=== PATIENT | female | born 1970 | race Caucasian/White ===

== ENCOUNTER 2025-03-01 17:50 | Inpatient (IN) | payer OTHER, SELFPAY ==
[2025-03-01 14:09] VITALS: BP 149/73
[2025-03-01 14:13] VITALS: BP 149/73
[2025-03-01 14:15] VITALS: BMI 22.9
--- NOTE | 2025-03-01 14:21 | ED.MUSCINJ ---
HPI-Injury
General
Chief Complaint: Musculo-Skeletal Complaint
Time Seen by Provider: 03/01/25 14:13
History of Present Illness-Injury
Initial Injury comments:
Patient is a 54-year-old woman presenting to the emergency department with a fall. Patient states that she was standing on a chair and fell landing on her right hip. She did not hit her head or lose consciousness. She is not on a blood thinner.
She is complaining of diffuse pain to her entire right leg. It hurts at the pain knee and ankle. Per medics she was given 100 mcg of fentanyl. It did improve her pain. No numbness tingling. No headache. No trauma elsewhere.
Past History
Past History
ED Past Medical History: Fibromyalgia (Takes Flexeril which helps her pain from fibromyalgia and spinal stenosis) and Other (Spinal stenosis)
ED Past Surgical History: , Tonsilectomy and Other (Patient has a history of hemorrhoid surgery)
Social History
Tobacco: Non-smoker
Alcohol: None
Drug: Marijuana (Medical)
Personal:
Living: with family
Employment: Not employed
Family History
Family History: Other
Phy Exam
Physical Exam
Physical Exam:
GENERAL: no acute distress
HEENT: atraumatic, extraocular muscles intact, no signs of entrapment, dentition intact, no other obvious trauma
NECK: no midline tenderness, normal range of motion, NEXUS criteria negative, no other obvious trauma
BACK: no midline tenderness, no other obvious trauma
CHEST: no tenderness, no flail segment, no subcutaneous emphysema, no other obvious trauma
LUNGS: clear to auscultation bilaterally
CARDIOVASCULAR: regular rate and rhythm
ABDOMEN: soft, non-tender, no masses, no other obvious trauma
PELVIS: stable, no obvious injury
EXTREMITIES: Right lower extremity with pain diffusely from the hip to the ankle, normal cap refill, 2+ DP pulse, normal sensation, no obvious deformity, moving all extremities, distal pulses intact, no other obvious trauma
NEUROLOGIC: awake, alert x 3, no focal deficits
Injury Course
Orders/Labs/Results
Orders:
Orders
03/01/25 14:19
CR Ankle - Right Min 3 Views * Urgent
Comment:
Reason For Exam: pain, fall
CR Hip - RT w/wo Pel 2-3 Vw* Urgent
Comment:
Reason For Exam: hip pain
Include a pelvis x-ray?: Yes
CR Knee- Right 4 Or More View* Urgent
Comment:
Reason For Exam: knee pain
03/01/25 14:20
HYDROmorphone [Dilaudid] 0.25 mg IV NOW STA
03/01/25 Dinner
Regular
At Your Request: Full Participation
Does patient need a safe tray?: No
03/01/25 15:46
CT Pelvis W/o Iv Contrast Urgent
Comment:
Reason For Exam: hip fx, assess displacement
HYDROmorphone [Dilaudid] 0.5 mg IV NOW STA
03/01/25 15:47
HYDROmorphone [Dilaudid] 0.25 mg IV NOW STA
03/01/25 16:37
Basic Metabolic Panel Urgent
Complete Blood Count/With Diff Urgent
03/01/25 17:03
EKG [Electrocardiogram (*1)] Routine
Reason for Study: PreOp
EKG- Treatment ONCE
03/01/25 17:04
Admit/Transfer Patient As Directed
Co-Sign Provider:
Level of Care: Inpatient admission
Assign to:: Medical/Surgical
Physician / Group: Rafael Desai
Diagnosis: Right hip fracture
Reason for Hospitalization: Right hip fracture
Expected length of stay greater than two midnights?: Yes
ELOS- Estimated Length of Stay in days: 3
I certify the patient meets the requirements for IP care: Yes
03/01/25 17:05
Code Status As Directed
Resuscitation Status: Full Code
PRN Pain Medication Management As Directed
May give lesser potent ordered pain med per pt: Yes
preference::
Protocol:: Medication orders for pain may be administered in a
manner that supports deferring to patient preference
when the pt is:
- Requesting an ordered lesser potent pain medication.
Least to most potent pain medications are defined
as: acetaminophen < NSAID < tramadol < opioids
(morphine, oxycodone, hydromorphone).
- Requesting a lesser dose of the same medication IF
ORDERED.
- Requesting a less intrusive route of administration
if both routes are prescribed by the provider (PO <
IV).
03/01/25 17:35
Type+Screen Routine
03/01/25 18:21
ABO2 Urgent
[employer] Wristband Number:
Associate notified that ABO2 has been ordered: [id number]
Date: 03/01/25
Time: 17:46
Fashion Merchandiser ID: [id number]
03/01/25 19:17
HYDROmorphone [Dilaudid] 0.25 mg IV Q1HPRN PRN
03/01/25 19:50
Magnesium Hydroxide [Milk of Magnesia] 30 ml PO DAILYPRN PRN
Oxycodone [Roxicodone] 10 mg PO Q4HPRN PRN
Oxycodone [Roxicodone] 5 mg PO Q4HPRN PRN
Tamsulosin [Flomax] 0.4 mg PO DAILYPRN PRN
03/01/25 19:50
ORTHOPEDIC CONSULT Routine
Consulting Provider: Bubba Hurst
Was physician already notified: Yes
Reason for consult: hip fracture
Activity As Directed
Activity Level: Bedrest
Bladder Scan As Directed
Follow Bladder Retention/Intermittent Cath Algorithm?: Yes
PRN if no void in __ hours: 6
Comment: if not voiding 6 hrs upon arrival to floor, bladder scan & follow algorithm
Intake/ Output As Directed
Frequency: Per unit guidelines
Pneumatic Compression Sleeves As Directed
Type: Knee high
Straight Cath As Directed
Frequency: Per Retention Algorithm
Additional Instructions: straight cath as needed per acute urinary retention algorithm for 24 hrs
Additional Instructions: for bladder scan greater than 400 mL
Vital Signs As Directed
Frequency: Per unit guidelines
DX Deep Vein Thrombosis Video Routine
03/01/25 20:00
Acetaminophen [Tylenol] 650 mg PO Q4HWA
Docusate Sodium [Colace] 100 mg PO BID
Sennosides [Senokot] 17.2 mg PO BID
03/02/25 Breakfast
NPO
Allow oral meds: Yes
Allow clear liquids: 4hrs prior to procedure
Comment: may have unrestricted clear liquid up to 4 hrs prior to scheduled procedure
Abnormal Lab Results
03/01/25
16:37
WBC 14.3 H 10^3/uL
(4.8-10.8)
RBC 4.13 L 10^6/uL
(4.20-5.40)
MPV 11.3 H fL
(7.4-10.4)
Abs Immat Gran (auto) 0.1 H 10^3/uL
(0-0.05)
Absolute Neuts (auto) 12.7 H 10^3/uL
(1.4-6.5)
Absolute Lymphs (auto) 0.9 L 10^3/uL
(1.2-3.4)
Neutrophils % 88.3 H %
(42.2-75.2)
Lymphocytes % 6.5 L %
(20.5-51.1)
Creatinine 0.5 L mg/dL
(0.6-1.0)
Glucose 116 H mg/dl
(70-99)
03/01/25 16:37
03/01/25 16:37
MDM/Problems Addressed
Differential Diagnosis Includes:
Patient is a 54-year-old woman presenting to the emergency department with right lower extremity pain after a fall. Vitals are unremarkable exam does show diffuse tenderness from the hip to the ankle. There is no obvious deformity. Could be
fracture. Less likely to be dislocation. Will obtain x-rays and pain control.
*Critical Care Note
Total Time (30-74mins, 75-104mins- exclusive of procedures): Not Applicable
Update Note
Update Note:
X-ray per my interpretation with right-sided hip fracture. No obvious fracture on the ankle or hip per my interpretation. On reevaluation patient states that the pain is still not controlled. Will give additional Dilaudid. I did discuss with
on-call orthopedics Dr. Hurst who recommended CT scan prior to admission. Will obtain CT scan. Patient signed out to oncoming attending pending official reads of xrays, CT scan results and discussion with orthopedics.
ED Attending Note
-
Portions of this chart may have been created with voice recognition software.� Occasional wrong word or��sound alike� substitutions may have occurred due to the inherent limitations of voice recognition software.
Discharge Plan
Departure
Patient Disposition: Admit
Date of Disposition: 03/01/25
Time of Disposition: 17:02
Admit to: Med/Surg
Presentation/result/management discussed w/ accepting MD/DO: Hospitalist
Patient with high blood pressure during this ER visit?: No
Condition: Good
Covid-19: Not Applicable
Discharge Problem:
Closed hip fracture
Interventions
Interventions:
*Risk Screen - Suicide Last Done: 03/01/25 14:17
*General Assessment Last Done: 03/01/25 14:15
*Neglect/Abuse Screening Last Done: 03/01/25 14:17
*ED- Fall Risk Assessment Last Done: 03/01/25 14:15
*ED COVID-19 Vaccine History Last Done: 03/01/25 14:15
*Nursing Disposition Last Done: 03/01/25 19:46
ED-Musculoskeletal Assessment Last Done: 03/01/25 14:17
Discharge Date and Time
Discharge Date/Time: 03/01/25 19:46
[2025-03-01] MEDS: DILAUDID 0.25 MG IV ×4 (14:45→22:26)
[2025-03-01 15:00] VITALS: BP 144/65
[2025-03-01] MEDS: DILAUDID 0.5 MG IV (15:51)
[2025-03-01 16:47] LABS: % Basophils 0.3 % (0-2); % Eosinophils 0.2 % (0-6); % Immature Granulocytes 0.4 % (0-0.5); % Lymphocytes 6.5 % (20.5-51.1); % Monocytes 4.3 % (1.7-9.3); % Neutrophils 88.3 % (42.2-75.2); Absolute Basophils 0.1 10^3/uL (0-0.2); Absolute Immature Granulocytes 0.1 10^3/uL (0-0.05); Absolute Lymphocytes 0.9 10^3/uL (1.2-3.4); Absolute Monocytes 0.6 10^3/uL (0.1-0.6); Absolute Neutrophils 12.7 10^3/uL (1.4-6.5); Hematocrit 37.5 % (37.0-47.0); Hemoglobin 12.4 g/dL (12.0-16.0); Mean Corp Hgb Conc. 33.1 g/dL (33.0-37.0); Mean Corpuscular Volume 90.8 fL (81.0-99.0); Mean Platelet Volume 11.3 fL (7.4-10.4); Nucleated Red Blood Cells % 0 %; Platelet Count 211 10^3/uL (130-400); Red Blood Cell Count 4.13 10^6/uL (4.20-5.40); Red Cell Dist. Width 12.3 % (11.5-14.5); White Blood Cell Count 14.3 10^3/uL (4.8-10.8)
[2025-03-01 17:01] LABS: Blood Urea Nitrogen 8 mg/dl (7-17); Carbon Dioxide 28 mmol/L (22-30); Chloride 104 mmol/L (98-107); Estimated Creatinine Clearance 98 ml/min; Glucose 116 mg/dl (70-99); Potassium 3.8 mmol/L (3.5-5.1); Sodium 140 mmol/L (135-145); eGFR > 60.00
--- NOTE | 2025-03-01 17:07 | HPS.HSE ---
Family Physician
-
Family Physician: AFIA CAMARILLO
Chief Complaint
-
Mechanical fall
History of Present Illness
Patient is a 54-year-old female with past medical history of major depressive disorder, irritable bowel syndrome, fibromyalgia, marijuana user came to ER after having mechanical fall. Patient was standing on chair doing something when slipped and
fell on the ground. Patient landed on the right side and did hit her head although was not significant head injury. Patient was having right-sided hip and knee pain and came to ER for further evaluation. No dizziness/diaphoresis/palpitation
reported. ER x-ray showing patient having right hip fracture and being admitted for further management.
During the visit patient resting comfortably in bed, denies of any ongoing shortness of breath/chest discomfort/dizziness/abdominal pain/nausea/vomiting/diarrhea/dysuria.
Medical History
Past Medical History
Past Medical History: Reports Other
Additional Past Medical History:
major depressive disorder, irritable bowel syndrome, fibromyalgia, marijuana user
Past Surgical History: Reports Gynocological ( section) and Other
Social History
Tobacco: Non-smoker
Alcohol: None
Drug: Marijuana
Personal:
Living: With Family
Family History
Family History: Not pertinent
Allergies / Home Medications
Allergies reflects when Allergies were last updated in [employer].
Home Medications with original date entered in [employer]
Allergy/Medication List:
Allergies
Allergy/AdvReac Type Severity Reaction Status Date / Time
ANTIBIOTICS Allergy GI Uncoded 12/30/20 21:51
ISSUES-SENSITIVITY
Home Medications
medroxyprogesterone 10 mg tablet 10 mg PO DAILY #6 tabs 12/08/14
cyclobenzaprine 10 mg tablet 10 mg PO BIDPRN PRN pain #20 tabs 04/20/18
phenazopyridine 200 mg tablet 200 mg PO TID PRN pelvic pressure,urinary urgenc #6 tabs 08/23/18
sulfamethoxazole 800 mg-trimethoprim 160 mg tablet 1 tab PO BID #10 tabs 08/23/18
diclofenac sodium 75 mg tablet,delayed release 75 mg PO BID Pain ##10 12/04/19
tamsulosin 0.4 mg capsule 0.4 mg PO DAILY #7 caps 12/04/19
Review of Systems
-
A 12 point ROS was completed and negative except as noted: Yes
Physical Exam
Vital Signs
Vital Signs
Temp Pulse Resp BP Pulse Ox
97.9 F 89 16 144/65 98
03/01/25 14:09 03/01/25 14:09 03/01/25 14:09 03/01/25 15:00 03/01/25 15:00
Physical Exam
General: No Apparent Distress
HEENT: Atraumatic; No Oxygen
Respiratory: Clear
Cardiac: S1/S2 and Regular Rhythm; No Murmur or Rub
GI: Soft, Non Tender, Non Distended and Normal Bowel Sounds; No Organomegaly
Rectal: Deferred by Provider
Musculoskeletal: No Edema
Skin: No Rash
Neuro: Awake, Alert, Oriented and Nonfocal/grossly intact
Laboratory Results
-
03/01/25 16:37
03/01/25 16:37
Impression/Plan
-
Right hip xr
Impacted, subcapital fracture of the RIGHT hip.
1. Right hip fracture
Mechanical fall
- Patient had a mechanical fall, no reported dizziness/syncope
- Hip x-ray showing impacted right subcapital fracture
- ER physician discussed with orthopedic surgery and recommended CT of right hip, pending
- Admit to MedSur floor for further management
- start patient on IV/oral pain medication
- N.p.o. past midnight for tentative surgery for tomorrow
2. Major depressive disorder
- Patient on Vraylar and Rexulti, dose needs to be confirmed
- Also on duloxetine, will continue once pharmacy reconciled
3. Leukocytosis
-Likely reactive, monitor
DVT prophylaxis -SCD
Full code
Total time spent : 82 mins
I personally saw and examined the patient.
I have reviewed all diagnostic interpretations and treatment plans as written.
Time includes patient management by me, time spent at the patients bedside, time to review lab and imaging results, discussing patient care, documentation in the medical record, and time spent with the family or caregiver and discussing care plan
with RN/Consultants.
[2025-03-01 19:20] VITALS: BP 167/87
[2025-03-01] MEDS: SENOKOT 17.2 MG PO (20:32)
[2025-03-01] MEDS: TYLENOL 650 MG PO (20:32)
[2025-03-01] MEDS: COLACE 100 MG PO (20:32)
[2025-03-01] MEDS: NON-FORMULARY ITEM 1.5 MG PO (22:22)
[2025-03-01] MEDS: ZOFRAN 4 MG IV (23:09)
[2025-03-01 23:30] VITALS: BP 162/88
[2025-03-01] MEDS: ROXICODONE 10 MG PO (23:47)
[2025-03-02 00:20] VITALS: BP 162/88
[2025-03-02] MEDS: TYLENOL PO (01:09)
--- NOTE | 2025-03-02 01:19 | PTCARENOTE ---
03/01 19;48 pt rec'vd from ER with left hip fracture, spouse at the bedside, vs WNL purewick placed pt bedrest, oriented to unit.
[2025-03-02] MEDS: DILAUDID 0.25 MG IV ×5 (01:59→21:43)
[2025-03-02] MEDS: TYLENOL 650 MG PO ×5 (04:16→19:46)
--- NOTE | 2025-03-02 06:45 | W.PN.UPDATE ---
Update Note
Progress Note Update
Patient seen and examined this morning.
I did have a long discussion the patient regarding diagnosis treatment options. Discussed both nonsurgical and surgical options. Discussed both fixation and arthroplasty options. Given the patient's age and impacted nature of the fracture, we
mutually agreed to proceed with operative intervention in the form of cannulated screw fixation/stabilization of impacted right femoral neck fracture.
54-year-old female history of fibromyalgia impacted minimally displaced right femoral neck fracture
Nonweightbearing right lower extremity
N.p.o. at midnight
Please hold DVT prophylaxis in preparation for OR tomorrow
Medical management per primary team
Plan: 2 OR tomorrow for cannulated screw fixation right impacted femoral neck fracture pending OR availability and medical clearance.
Please reach out any questions or concerns
Formal consult note to follow
[2025-03-02 07:40] VITALS: BP 168/77
[2025-03-02] MEDS: CYMBALTA DELAYED RELEASE 90 MG PO (07:43)
[2025-03-02] MEDS: COLACE 100 MG PO ×2 (07:43→19:46)
[2025-03-02] MEDS: SENOKOT 17.2 MG PO ×2 (07:43→19:46)
[2025-03-02] MEDS: ROXICODONE 5 MG PO (07:44)
--- NOTE | 2025-03-02 09:31 | W.PN.HOSP.TC ---
Today's Communication/Plan
-
for OR tomorrow
increased pain meds
Assessment / Plan
Assessment / Plan
Right hip xr
Impacted, subcapital fracture of the RIGHT hip.
CT R hip
Impacted subcapital right femoral neck fracture. Minimal lateral displacement of a fracture fragment up to 5 mm. No intertrochanteric or intra-articular extension. No dislocation.
Limited evaluation of pelvic viscera is grossly unremarkable.
Evaluation of additional soft tissue structures such as ligaments and tendons is limited by CT.
1. Right hip fracture
Mechanical fall
- Patient had a mechanical fall, no reported dizziness/syncope
- Hip x-ray showing impacted right subcapital fracture
- CT r hip findings as above
[facility]
- start patient on IV/oral pain medication - dose increased.
- surgery to be done tomorrow per ortho, past MN NPO
2. Major depressive disorder
- Patient on Vraylar and Rexulti, dose needs to be confirmed
- Also on duloxetine, will continue once pharmacy reconciled
3. Leukocytosis
-Likely reactive, monitor
DVT prophylaxis -SCD
Full code
Anticipated Discharge: 24 - 48 hours
Subjective/Interval History
-
Date of Service: March 02, 2025
Patient complaining of some right-sided limb pain
Surprisingly main pain is in the right knee
minimal nausea no vomiting
Objective Data
-
Vital Signs:
Vital Signs
Temp Pulse Resp BP Pulse Ox
98.2 F 82 16 168/77 97
03/02/25 07:40 03/02/25 07:40 03/02/25 07:40 03/02/25 07:40 03/02/25 07:40
I&O
03/01/25 03/02/25 03/03/25
06:59 06:59 06:59
Intake Total 240 / 240
Output Total 600 / 600
Balance -360 / -360
Review of Systems
-
Respiratory: Reports No Symptoms
Cardiac: Reports No Symptoms
Abdomen/GI: Reports No Symptoms
Physical Exam
-
General: Negative Appears in Distress
HEENT: Negative Oxygen
Neuro: Awake, Alert, Oriented and No Motor Deficits
--- NOTE | 2025-03-02 10:55 | CM ---
Met with patient and at bedside; initial assessment completed
Pharmacy verified: [facility] @ [address] [place] [address]
Family provider verified: Leila Zee PA-C @ [facility], [address] [place] [address], [place] [address]; phone #[phone]
Patient reported she lives with and 20 yr old daughter; multilevel home; 1 step to enter; 14 steps to 2nd floor bedroom and bath; powder room 1st floor
PLOF: was independent with ADS and ambulation; drives; does not work out of the home; NO DME
NO SNF or Home Health utilization history
will transport home
Discharge plan to be determined pending hospital course post surgery; CM will monitor for discharge needs/services and support accordingly
[2025-03-02] MEDS: ROXICODONE 10 MG PO ×2 (11:42→15:46)
[2025-03-02 15:45] VITALS: BP 158/77
[2025-03-02] MEDS: ZOFRAN 4 MG IV (20:00)
[2025-03-02] MEDS: NON-FORMULARY ITEM 0.5 MG PO (21:42)
[2025-03-02] MEDS: NON-FORMULARY ITEM 1.5 MG PO (21:42)
[2025-03-02 23:38] VITALS: BP 126/64
[2025-03-03] VITALS (10 sets, daily range): BP systolic 120–168; BP diastolic 51–88
[2025-03-03] MEDS: ROXICODONE 10 MG PO ×2 (00:01→08:32)
[2025-03-03] MEDS: TYLENOL PO ×2 (00:48→13:03)
[2025-03-03] MEDS: TYLENOL 650 MG PO ×5 (04:31→23:05)
[2025-03-03] MEDS: DILAUDID 0.25 MG IV ×2 (05:10→15:59)
[2025-03-03 07:31] LABS: Hematocrit 39.1 % (37.0-47.0); Hemoglobin 13.3 g/dL (12.0-16.0); Mean Corpuscular Hgb 30.9 pg (27.0-31.0); Mean Corpuscular Volume 90.7 fL (81.0-99.0); Mean Platelet Volume 12.3 fL (7.4-10.4); Platelet Count 203 10^3/uL (130-400); Red Blood Cell Count 4.31 10^6/uL (4.20-5.40); Red Cell Dist. Width 12.5 % (11.5-14.5); White Blood Cell Count 13.6 10^3/uL (4.8-10.8)
[2025-03-03] MEDS: SENOKOT 17.2 MG PO ×2 (08:27→20:09)
[2025-03-03] MEDS: COLACE 100 MG PO ×2 (08:27→20:09)
[2025-03-03] MEDS: CYMBALTA DELAYED RELEASE 90 MG PO (08:27)
[2025-03-03 08:34] LABS: Blood Urea Nitrogen 11 mg/dl (7-17); Calcium 9.3 mg/dl (8.4-10.2); Carbon Dioxide 26 mmol/L (22-30); Chloride 100 mmol/L (98-107); Estimated Creatinine Clearance 98 ml/min; Glucose 122 mg/dl (70-99); Potassium 3.8 mmol/L (3.5-5.1); Sodium 139 mmol/L (135-145); eGFR > 60.00
--- NOTE | 2025-03-03 12:58 | OR.RPT ---
Operative Report
Operative Report
Date
03/03/25
Anesthesia Type:
General
Operative Indications:
Right impacted femoral neck fracture
Operative Findings :
Same
Complications:
None
Implants:
6.5 mm cannulated partially-threaded screws, Challis x 3
Procedure and Technique:
Close reduction cannulated screw fixation right femoral neck fracture
INDICATIONS FOR PROCEDURE:
Patient is a 54-year-old female history of fibromyalgia sustained a fall ultimately diagnosed with an impacted right femoral neck fracture. We discussed surgical nonsurgical options. Discussed with arthroplasty and fixation options. Ultimately
patient elected to proceed with surgical intervention in the form of cannulated screw fixation. We discussed risks benefits and alternatives to surgery. Discussed the usual expected perioperative and postoperative course.
OPERATIVE PROCEDURE:
The patient was seen and identified in the preoperative holding area. Operative extremity was marked. All questions were addressed and answered. She was taken to the operating room where general anesthesia was administered. She was placed supine
on fracture table. Orthogonal fluoroscopic images confirmed impacted right femoral neck fracture. There is mild displacement inferior femoral neck. On the lateral side sagittal images, there was no angulation. Operative extremity was prepped and
draped in normal sterile fashion. Timeout was performed again identifying the correct operative extremity. Preoperative antibiotics were addressed. Small incision was made over the lateral aspect of hip under fluoroscopic guidance. Sharp
dissection was carried through skin subcutaneous tissues. Deep fascial layer was penetrated with 3 guidewires arranged in an inverted triangle position confirmed to be in appropriate position under fluoroscopic guidance. Appropriately sized
cannulated partially-threaded screws were then placed across the fracture site. Final orthogonal fluoroscopic images confirmed appropriate position. Wound was copiously irrigated normal saline solution. Wound was closed in a layered fashion
utilizing 2-0 Vicryl for subcutaneous layer moi for skin. Sterile dressings were applied consisting of Aquacel dressing. Anesthesia was reversed patient was taken to PACU in stable condition. Postoperative plans include toe-touch
weightbearing right lower extremity. Recommend Lovenox x 28 days for DVT prophylaxis. Plan to see patient back in the office in 2 to 3 weeks for repeat evaluation repeat radiographs and clinical assessment.
Disposition:
PACU stable condition
--- NOTE | 2025-03-03 13:00 | CON.ORTHO ---
Consultation - Orthopedics
History
HPI: 54-year-old female history of depression fibromyalgia presented to the emergency department status post mechanical fall with complaints of right hip pain and inability to bear weight. She was subsequently diagnosed with an impacted right
femoral neck fracture. She was admitted to the hospital service. Orthopedics was consulted for further evaluation and treatment. Patient reports that she was standing on a chair when she lost her balance and fell onto the ground. She localizes
pain to the right groin and hip region. Symptoms are made worse by palpation affected area with attempted ambulation she is accompanied today by her .
Allergies / Home Medications
Past medical history: Depression, irritable bowel syndrome, fibromyalgia
Past surgical history:
Social history: Non-smoker,
Lives at home with
Family history: Not pertinent
Allergy/AdvReac Type Severity Reaction Status Date / Time
ANTIBIOTICS Allergy GI Uncoded 12/30/20 21:51
ISSUES-SENSITIVITY
�Medication �Instructions �Recorded
Medical Marijuana 2 gummy PO HSPRN PRN sleep 03/01/25
Medical Marijuana 2 puff PO DAILYPRN PRN mild pain 03/01/25
brexpiprazole 0.5 mg tablet 0.5 mg PO HS 03/01/25
(Rexulti)
cariprazine 1.5 mg capsule 1.5 mg PO HS 03/01/25
(Vraylar)
cranberry extract 50 mg chewable 100 mg PO QPM 03/01/25
tablet
duloxetine 30 mg capsule,delayed 90 mg PO DAILY 03/01/25
release
inulin 2 gram chewable tablet 1 g PO HS 03/01/25
Vital Signs / Lab Results
Temp Pulse Resp BP Pulse Ox
98.6 F 92 16 122/88 99
03/03/25 08:00 03/03/25 08:00 03/03/25 08:00 03/03/25 08:00 03/03/25 08:00
03/03/25 06:28
03/03/25 06:28
10 point review systems reviewed and negative unless otherwise stated
General: Pleasant, no acute distress at rest
Musculoskeletal right lower extremity
Skin intact, no erythema or ecchymotic staining
Tense palpation of groin and lateral trochanteric flare
Actually fairly symmetric leg length today without significant rotational deformity to the right lower extremity
No palpable knee effusion
Patient is somewhat exquisitely tender to very light touch diffusely over the knee. She is really unable to tolerate detailed examination
No gross motor or sensory deficits distally
No other areas of bony tenderness palpation crepitation long bones or joints on tertiary exam
Diagnostic studies
X-rays CT scan right hip independently viewed by myself. Radiology report was reviewed. There is evidence of very minimally displaced valgus impacted femoral neck fracture. There is a slight disruption of the inferior femoral neck.
Assessment / Plan
54-year-old female history of fibromyalgia status post fall with impacted right femoral neck fracture. I do long detailed discussion with the patient as well as her regarding diagnosis and treatment options. We discussed postsurgical
nonsurgical options. Discussed both arthroplasty and fixation options. After discussion mutually to proceed with cannulated screw fixation of right impacted femoral neck fracture. We discussed risks benefits and alternatives to surgery.
Discussed the usual expected perioperative postoperative course. No guarantees were given. After discussion verbal consent was obtained. Will plan obtain written informed consent prior to surgical intervention.
Nonweightbearing right lower extremity
N.p.o. for surgery
Please hold anticoagulation preparation for OR
Medical management per primary team
Plan: 2 OR for cannulated screw fixation right impacted femoral neck fracture pending or availability and medical clearance
--- NOTE | 2025-03-03 13:51 | W.PN.HOSP.TC ---
Today's Communication/Plan
-
for OR today
Assessment / Plan
Assessment / Plan
Right hip xr
Impacted, subcapital fracture of the RIGHT hip.
CT R hip
Impacted subcapital right femoral neck fracture. Minimal lateral displacement of a fracture fragment up to 5 mm. No intertrochanteric or intra-articular extension. No dislocation.
Limited evaluation of pelvic viscera is grossly unremarkable.
Evaluation of additional soft tissue structures such as ligaments and tendons is limited by CT.
1. Right hip fracture
Mechanical fall
- Patient had a mechanical fall, no reported dizziness/syncope
- Hip x-ray showing impacted right subcapital fracture
- CT r hip findings as above
[facility]
- start patient on IV/oral pain medication - dose increased.
- surgery planning to take to OR today
2. Major depressive disorder
- Maintain on Vraylar and Rexulti and cymbalta home dose
3. Leukocytosis
-Likely reactive, monitor
-no other supporting features to suggest active infection
DVT prophylaxis -SCD
Full code
Anticipated Discharge: 24 - 48 hours
Subjective/Interval History
-
Date of Service: March 03, 2025
Resting comfortably in bed
Some right hip pain and spasms overnight
Some nausea w/o vomiting
Objective Data
-
Labs:
Laboratory Results
03/03/25
06:28
WBC 13.6 H
Hgb 13.3
Hct 39.1
Plt Count 203
Sodium 139
Potassium 3.8
Chloride 100
Carbon Dioxide 26
BUN 11
Creatinine 0.5 L
Glucose 122 H
Calcium 9.3
Vital Signs:
Vital Signs
Temp Pulse Resp BP Pulse Ox
98.6 F 92 16 122/88 99
03/03/25 08:00 03/03/25 08:00 03/03/25 08:00 03/03/25 08:00 03/03/25 08:00
I&O
03/02/25 03/03/25 03/04/25
06:59 06:59 06:59
Intake Total 240 / 240 1200 / 1200
Output Total 600 / 600 200 / 200
Balance -360 / -360 1000 / 1000
Review of Systems
-
Respiratory: Reports No Symptoms
Cardiac: Reports No Symptoms
Abdomen/GI: Reports No Symptoms
Physical Exam
-
General: Negative Appears in Distress
HEENT: Negative Oxygen
Neuro: Awake, Alert, Oriented and No Motor Deficits
[2025-03-03] MEDS: ZOFRAN 4 MG IV (15:24)
[2025-03-03] MEDS: ROXICODONE 5 MG PO (20:09)
[2025-03-03] MEDS: NON-FORMULARY ITEM 1.5 MG PO (22:49)
[2025-03-03] MEDS: NON-FORMULARY ITEM 0.5 MG PO (22:49)
[2025-03-04] VITALS (7 sets, daily range): BP systolic 102–155; BP diastolic 51–80; PULSE 103; O2SAT 93–94
--- NOTE | 2025-03-04 03:52 | DOWNTIME ---
There was a [employer] Downtime on 03/04/2025 from 0200 to 03/04/2024 at 0318 . Downtime documentation of patient's care, including medication administrations, has been reconciled in the electronic record per guidelines. Refer to the
patient's paper chart under the miscellaneous tab to see printed paper medication records and downtime forms.
[2025-03-04] MEDS: TYLENOL 650 MG PO ×5 (04:48→20:45)
[2025-03-04] MEDS: ROXICODONE 5 MG PO ×3 (06:18→14:47)
--- NOTE | 2025-03-04 07:43 | W.PN.ORTHO ---
Today's Communication / Plan
-
POD 1 s/p CRPP right fem neck fracture
TTWB RLE
PT/OT
Pain control
Medical management per primary team
DVT ppx: lovenox daily renally dosed while hospitalized, 81mg ASA BID on discharge for total of 28 days post op
Follow up outpatient with myself in 2-3 weeks for repeat clinical assessment
Assessment
.
Dressing:
.
Subjective
.
.:
Patient resting comfortably in bed this morning
Vital Signs and Labs
.
Vital Signs and Labs:
Temp Pulse Resp BP Pulse Ox
98.3 F 87 16 102/55 97
03/04/25 03:05 03/04/25 03:05 03/04/25 03:05 03/04/25 03:05 03/04/25 03:05
Physical Exam
-
MSK RLE
Dressing reinforced, drainaged on dressing noted
Distal extremity warm pink and sensate
[2025-03-04 07:54] LABS: Hematocrit 32.5 % (37.0-47.0); Mean Corp Hgb Conc. 33.8 g/dL (33.0-37.0); Mean Corpuscular Hgb 30.5 pg (27.0-31.0); Mean Platelet Volume 11.6 fL (7.4-10.4); Platelet Count 214 10^3/uL (130-400); Red Blood Cell Count 3.61 10^6/uL (4.20-5.40); Red Cell Dist. Width 12.6 % (11.5-14.5); White Blood Cell Count 12.1 10^3/uL (4.8-10.8)
[2025-03-04 08:21] LABS: Blood Urea Nitrogen 18 mg/dl (7-17); Calcium 9.2 mg/dl (8.4-10.2); Carbon Dioxide 31 mmol/L (22-30); Chloride 101 mmol/L (98-107); Estimated Creatinine Clearance 98 ml/min; Glucose 123 mg/dl (70-99); Sodium 137 mmol/L (135-145); eGFR > 60.00
[2025-03-04] MEDS: ANCEF 5 IV ×2 (08:45→16:55)
[2025-03-04] MEDS: LOVENOX 40 MG SC (08:46)
[2025-03-04] MEDS: CYMBALTA DELAYED RELEASE 90 MG PO (08:46)
[2025-03-04] MEDS: SENOKOT 17.2 MG PO ×2 (08:47→20:45)
[2025-03-04] MEDS: COLACE 100 MG PO ×2 (08:47→20:45)
--- NOTE | 2025-03-04 13:14 | W.PN.HOSP.TC ---
Today's Communication/Plan
-
PT/OT
Assessment / Plan
Assessment / Plan
Right hip xr
Impacted, subcapital fracture of the RIGHT hip.
CT R hip
Impacted subcapital right femoral neck fracture. Minimal lateral displacement of a fracture fragment up to 5 mm. No intertrochanteric or intra-articular extension. No dislocation.
Limited evaluation of pelvic viscera is grossly unremarkable.
Evaluation of additional soft tissue structures such as ligaments and tendons is limited by CT.
1. Right hip fracture
Mechanical fall
- Patient had a mechanical fall, no reported dizziness/syncope
- Hip x-ray showing impacted right subcapital fracture
- CT r hip findings as above
[facility]
- start patient on IV/oral pain medication - dose increased.
03/04
s/p CRPP
2. Major depressive disorder
- Maintain on Vraylar and Rexulti and cymbalta home dose
3. Leukocytosis
-Likely reactive, monitor
-no other supporting features to suggest active infection
CODE STATUS: Full code
DVT prophylaxis: Lovenox
Diet: Regular diet
Total time spent on today's encounter was 65 minutes which included time spent in counseling the patient/family regarding diagnosis and treatment plan as listed above, goals of care, and symptom management. Case was discussed with nursing staff,
specialists, and care coordinators/case management. All labs and imaging personally reviewed by me. Remainder the time spent in detailed review of previous records, lab data, imaging, and other medical provider documentation.
Anticipated Discharge: 24 - 48 hours
Subjective/Interval History
-
Date of Service: March 04, 2025
Patient seen and examined at bedside, at bedside, patient denies any chest pain or shortness of breath, no abdominal pain, no nausea, no vomiting, no diarrhea or constipation.
Right hip pain 5/10.
Objective Data
-
Labs:
Laboratory Results
03/04/25
07:20
WBC 12.1 H
Hgb 11.0 L
Hct 32.5 L
Plt Count 214
Sodium 137
Potassium 4.0
Chloride 101
Carbon Dioxide 31 H
BUN 18 H
Creatinine 0.6
Glucose 123 H
Calcium 9.2
Vital Signs:
Vital Signs
Temp Pulse Resp BP Pulse Ox
98.1 F 98 16 115/51 97
03/04/25 11:45 03/04/25 11:45 03/04/25 11:45 03/04/25 11:45 03/04/25 11:45
I&O
03/03/25 03/04/25 03/05/25
06:59 06:59 06:59
Intake Total 1200 / 1200 340 / 340
Output Total 200 / 200 325 / 325
Balance 1000 / 1000 15 / 15
Physical Exam
-
General: Well Developed, Well Nourished, No Apparent Distress and Comfortable
HEENT: Normocephalic, Atraumatic, Moist Mucous Membranes, No Ptosis, PERRLA and Nose Appears Normal
Respiratory: Clear to Auscultation and Non Labored Respirations
Cardiac: Regular Rhythm and S1/S2
Breast: Deferred by me
GI: Soft, Nontender, Nondistended and Normal Bowel Sounds
Genito-urinary: No Costovertebral Tender
Musculoskeletal: No Clubbing, No Cyanosis, No Edema and Other (Right hip dressing clean, no sign of bleeding)
Skin: Warm
Neuro: Awake, Alert, Oriented, AO x 3 and No Motor Deficits
Psych: Calm
Data Reviewed
-
Diagnostic Radiology: Image personally visualized and interpreted and Report Reviewed by me
CT Scan: Image personally visualized and interpreted and Report Reviewed by me
Ultrasound: Image personally visualized and interpreted and Report Reviewed by me
MRI: Image personally visualized and interpreted and Report Reviewed by me
Medical Tests (Nuc Med, Echo etc): Image personally visualized and interpreted and Report Reviewed by me
Labs: Labs Reviewed by me
Old Records: Reviewed
--- NOTE | 2025-03-04 14:30 | CM ---
Reviewed the chart notes and spoke with the patient and her spouse at the bedside. PT/OT recommending home health. Discussed VN services with patient. Selected VN. Referral sent via [facility]. CM continues to be available to patient/family
and is monitoring medical plan for needs at discharge.
Plan: Discharge to home with [facility].
[2025-03-04] MEDS: MAALOX 30 ML PO ×2 (14:31→23:33)
[2025-03-04 15:03] LABS: Hematocrit 33.4 % (37.0-47.0); Hemoglobin 11.7 g/dL (12.0-16.0); Mean Corpuscular Hgb 31.3 pg (27.0-31.0); Mean Corpuscular Volume 89.3 fL (81.0-99.0); Mean Platelet Volume 10.8 fL (7.4-10.4); Platelet Count 237 10^3/uL (130-400); Red Blood Cell Count 3.74 10^6/uL (4.20-5.40); Red Cell Dist. Width 12.6 % (11.5-14.5); White Blood Cell Count 14.4 10^3/uL (4.8-10.8)
[2025-03-04 15:26] LABS: Blood Urea Nitrogen 21 mg/dl (7-17); Calcium 9.3 mg/dl (8.4-10.2); Carbon Dioxide 28 mmol/L (22-30); Chloride 99 mmol/L (98-107); Estimated Creatinine Clearance 98 ml/min; Glucose 139 mg/dl (70-99); Potassium 3.9 mmol/L (3.5-5.1); Sodium 136 mmol/L (135-145); eGFR > 60.00
[2025-03-04 15:28] LABS: Troponin I < 0.012 ng/ml
--- NOTE | 2025-03-04 18:11 | PTCARENOTE ---
Patient c/o chest pain, sharp, around 1420. At this time, BP 179/90 HR 88 O2 sat 97% on room air. HR apically was regular. Maalox given as ordered and EKG obtained. Dr. Purcell made aware and came to see patient. Blood work ordered and drawn. Patient
at [address] was [address] better[address] Hurst also made aware of the excessive drainage through reinforced dressings. Dr. Hurst instructed RN to completely take down post op dressing and reapply a new primaseal dressing.
[2025-03-04] MEDS: ROXICODONE 10 MG PO (18:49)
[2025-03-04] MEDS: NON-FORMULARY ITEM 1.5 MG PO (20:46)
[2025-03-04] MEDS: NON-FORMULARY ITEM 0.5 MG PO (20:47)
[2025-03-04] MEDS: ZOFRAN 4 MG IV (20:50)
[2025-03-04] MEDS: DILAUDID 0.25 MG IV (20:51)
[2025-03-04] MEDS: FLUSH (NSS) 2 FLUSH IV (20:52)
[2025-03-05] MEDS: TYLENOL PO ×2 (00:21→05:05)
[2025-03-05 07:35] VITALS: BP 168/94
[2025-03-05 07:52] LABS: Hematocrit 35.2 % (37.0-47.0); Hemoglobin 11.9 g/dL (12.0-16.0); Mean Corp Hgb Conc. 33.8 g/dL (33.0-37.0); Mean Corpuscular Hgb 30.5 pg (27.0-31.0); Mean Corpuscular Volume 90.3 fL (81.0-99.0); Mean Platelet Volume 11.9 fL (7.4-10.4); Platelet Count 283 10^3/uL (130-400); Red Cell Dist. Width 12.7 % (11.5-14.5); White Blood Cell Count 14.9 10^3/uL (4.8-10.8)
[2025-03-05 08:07] LABS: Blood Urea Nitrogen 17 mg/dl (7-17); Carbon Dioxide 26 mmol/L (22-30); Chloride 101 mmol/L (98-107); Estimated Creatinine Clearance 98 ml/min; Glucose 112 mg/dl (70-99); Potassium 3.7 mmol/L (3.5-5.1); Sodium 139 mmol/L (135-145); eGFR > 60.00
[2025-03-05] MEDS: CYMBALTA DELAYED RELEASE 90 MG PO (08:09)
[2025-03-05] MEDS: COLACE 100 MG PO (08:11)
[2025-03-05] MEDS: SENOKOT 17.2 MG PO (08:11)
[2025-03-05] MEDS: TYLENOL 650 MG PO ×2 (08:11→12:11)
[2025-03-05] MEDS: ROXICODONE 5 MG PO ×2 (08:16→12:16)
--- NOTE | 2025-03-05 09:35 | CM ---
Addendum entered by Macy Marcum RN 03/05/25 16:14:
Wheelchair order placed with [employer]. Will be delivered to home tomorrow.
Original Note:
Reviewed the chart notes. CM continues to be available to patient/family and is monitoring medical plan for needs at discharge.
Plan: Discharge to home when medically stable with [facility] services.
[2025-03-05 10:35] VITALS: BP 153/74; PULSE 103; O2SAT 97
--- NOTE | 2025-03-05 11:30 | W.PN.HOSP.TC ---
Today's Communication/Plan
-
Discharge home today.
Assessment / Plan
Assessment / Plan
Right hip xr
Impacted, subcapital fracture of the RIGHT hip.
CT R hip
Impacted subcapital right femoral neck fracture. Minimal lateral displacement of a fracture fragment up to 5 mm. No intertrochanteric or intra-articular extension. No dislocation.
Limited evaluation of pelvic viscera is grossly unremarkable.
Evaluation of additional soft tissue structures such as ligaments and tendons is limited by CT.
1. Right hip fracture
Mechanical fall
- Patient had a mechanical fall, no reported dizziness/syncope
- Hip x-ray showing impacted right subcapital fracture
- CT r hip findings as above
- Admit to [facility] floor for further management
- start patient on IV/oral pain medication - dose increased.
03/04
s/p CRPP
2. Chest pain.
Patient developed chest pain after heavy meal.
Resolved with Maalox.
EKG shows no acute changes.
Troponins were negative.
Chest pain resolved
3. Leukocytosis
-Likely reactive, monitor
-no other supporting features to suggest active infection
4. Major depressive disorder
- Maintain on Vraylar and Rexulti and cymbalta home dose
CODE STATUS: Full code
DVT prophylaxis: Lovenox
Diet: Regular diet
Total time spent on today's encounter was 65 minutes which included time spent in counseling the patient/family regarding diagnosis and treatment plan as listed above, goals of care, and symptom management. Case was discussed with nursing staff,
specialists, and care coordinators/case management. All labs and imaging personally reviewed by me. Remainder the time spent in detailed review of previous records, lab data, imaging, and other medical provider documentation.
Anticipated Discharge: Today
Subjective/Interval History
-
Date of Service: March 05, 2025
Patient seen and examined at bedside, discussed with at bedside denies any chest pain or shortness of breath, no abdominal pain, no nausea, no vomiting, no diarrhea or constipation.
Objective Data
-
Labs:
Laboratory Results
03/05/25
06:55
WBC 14.9 H
Hgb 11.9 L
Hct 35.2 L
Plt Count 283
Sodium 139
Potassium 3.7
Chloride 101
Carbon Dioxide 26
BUN 17
Creatinine 0.5 L
Glucose 112 H
Calcium 9.0
Vital Signs:
Vital Signs
Temp Pulse Resp BP Pulse Ox
98.4 F 92 16 168/94 95
03/05/25 07:35 03/05/25 07:35 03/05/25 07:35 03/05/25 07:35 03/05/25 07:35
I&O
03/04/25 03/05/25 03/06/25
06:59 06:59 06:59
Intake Total 340 / 340 500 / 500 440 / 440
Output Total 325 / 325
Balance 15 / 15 500 / 500 440 / 440
Physical Exam
-
General: Well Developed, Well Nourished, No Apparent Distress and Comfortable
HEENT: Normocephalic, Atraumatic, Moist Mucous Membranes, No Ptosis, PERRLA and Nose Appears Normal
Respiratory: Clear to Auscultation and Non Labored Respirations
Cardiac: Regular Rhythm and S1/S2
Breast: Deferred by me
GI: Soft, Nontender, Nondistended and Normal Bowel Sounds
Genito-urinary: No Costovertebral Tender
Musculoskeletal: No Clubbing, No Cyanosis, No Edema and Other (Right hip dressing clean, no sign of bleeding)
Skin: Warm
Neuro: Awake, Alert, Oriented, AO x 3 and No Motor Deficits
Psych: Calm
Data Reviewed
-
Diagnostic Radiology: Image personally visualized and interpreted and Report Reviewed by me
CT Scan: Image personally visualized and interpreted and Report Reviewed by me
Ultrasound: Image personally visualized and interpreted and Report Reviewed by me
MRI: Image personally visualized and interpreted and Report Reviewed by me
Medical Tests (Nuc Med, Echo etc): Image personally visualized and interpreted and Report Reviewed by me
Labs: Labs Reviewed by me
Old Records: Reviewed
[2025-03-05 11:52] VITALS: BP 157/97; BP 161/105; PULSE 128; O2SAT 95
[2025-03-05 14:05] VITALS: BP 153/79
--- NOTE | 2025-03-05 14:15 | W.PN.UPDATE ---
Update Note
Progress Note Update
Patient is in need for light-weight wheelchair with back and seat cushions due to inability to self-propel in a standard wheelchair. patient has tried walker and cane which were inadequate.
--- NOTE | 2025-03-05 14:30 | W.DCSUMMARY ---
Discharge Summary
Discharge Data
Date of Admission: 03/01/25
Date of Discharge: 03/05/25
-
Pending Results: No
Hospital Course
Hospital course
Patient is a 54-year-old female with past medical history of major depressive disorder, irritable bowel syndrome, fibromyalgia, marijuana user came to ER after having mechanical fall. Patient was standing on chair doing something when slipped and
fell on the ground. Patient landed on the right side and did hit her head although was not significant head injury. Patient was having right-sided hip and knee pain and came to ER for further evaluation. ER x-ray showing patient having right hip
fracture and being admitted for further management.
Seen by orthopedic and underwent right hip CRPP
. Physical therapy recommending home PT.
During hospitalization patient was tachycardic and blood pressure was elevated but possible secondary to pain.
Also had 1 episode of chest pain which is noncardiac relieved with Maalox.
Will be given pantoprazole prescription.
During hospitalization patient was treated from the [facility]
Right hip xr
Impacted, subcapital fracture of the RIGHT hip.
CT R hip
Impacted subcapital right femoral neck fracture. Minimal lateral displacement of a fracture fragment up to 5 mm. No intertrochanteric or intra-articular extension. No dislocation.
Limited evaluation of pelvic viscera is grossly unremarkable.
Evaluation of additional soft tissue structures such as ligaments and tendons is limited by CT.
1. Right hip fracture
Mechanical fall
- Patient had a mechanical fall, no reported dizziness/syncope
- Hip x-ray showing impacted right subcapital fracture
- CT r hip findings as above
- Admit to [facility] floor for further management
- start patient on IV/oral pain medication - dose increased.
03/04
s/p CRPP
2. Chest pain.
Patient developed chest pain after heavy meal.
Resolved with Maalox.
EKG shows no acute changes.
Troponins were negative.
Chest pain resolved
3. Leukocytosis
-Likely reactive, monitor
-no other supporting features to suggest active infection
4. Major depressive disorder
- Maintain on Vraylar and Rexulti and cymbalta home dose
CODE STATUS: Full code
DVT prophylaxis: Lovenox
Diet: Regular diet
Total time spent on today's encounter was 40 minutes which included time spent in counseling the patient/family regarding diagnosis and treatment plan as listed above, goals of care, and symptom management. Case was discussed with nursing staff,
specialists, and care coordinators/case management. All labs and imaging personally reviewed by me. Remainder the time spent in detailed review of previous records, lab data, imaging, and other medical provider documentation.
Anticipated Discharge: Today
Discharge Plan
-
Patient Disposition: Home with Home Care
Discharge Diagnosis/Procedures: Right hip fracture
Sinus tachycardia
Condition: Good
Diet: As tolerated and Regular
Activity: With assistance and As tolerated
Other Services: PT and OT
Referrals:
NONE,* [Family Provider] -
Bubba Hurst MD [Non-Admitting Privileges] - in one to two weeks
Prescriptions:
New
(DME) Roller Walker
See Rx Instructions .Route .MEDSUPPLY Qty: 1 0RF
Rx Instructions:
Diagnosis:
Hip Fracture
(DME) commode
See Rx Instructions .Route .MEDSUPPLY Qty: 1 0RF
Rx Instructions:
Diagnosis:
Hip Fracture
oxycodone 5 mg Tablet
5 mg PO Q6HPRN PRN (Reason: Sever pain) 5 Days Qty: 20 0RF
acetaminophen 325 mg Tablet
650 mg PO Q6HPRN PRN (Reason: mild pain) Qty: 0 0RF
pantoprazole [Protonix] [address] for susp in packet
40 mg PO DAILY Qty: 30 0RF
aspirin 81 mg tablet
81 mg PO BID 28 Days Qty: 56 0RF
Continued
duloxetine 30 mg Capsule,Delayed Release(Dr/Ec)
90 mg PO DAILY
cranberry extract 50 mg Tablet,Chewable
100 mg PO QPM
Rexulti 0.5 mg Tablet
0.5 mg PO HS
Vraylar 1.5 mg Capsule
1.5 mg PO HS
inulin 2 gram Tablet,Chewable
1 g PO HS
Medical Marijuana
2 puff PO DAILYPRN PRN (Reason: mild pain)
Medical Marijuana
2 gummy PO HSPRN PRN (Reason: sleep)
Discharge Orders:
Discharge Patient (As Directed); Ordered 03/05/25
Ordered By: Jazzy Weiner
Discharge Date and Time
Print Language: JAPANESE
== END 2025-03-05 16:00 | disposition home health service (06) | DRG 482 ==
LOC: 2 SOUTH 17:50
PROVIDERS: Student in an Organized Health Care Education/Training Program; ADMITTING PHYSICIAN Hospitalist; ATTENDING PHYSICIAN General Practice; EMERGENCY PHYSICIAN Emergency Medicine; OTHER PHYSICIAN Orthopaedic Surgery
PROC: 0QS634Z Reposition Right Upper Femur with Internal Fixation Device, Percutaneous Approach (ICD-10-PCS; 2025-03-03)
DX: S72.011A Unspecified intracapsular fracture of right femur, initial encounter for closed fracture (principal); M79.7 Fibromyalgia; M48.00 Spinal stenosis, site unspecified; F32.9 Major depressive disorder, single episode, unspecified; D72.829 Elevated white blood cell count, unspecified; R07.89 Other chest pain; K58.9 Irritable bowel syndrome, unspecified; W07.XXXA Fall from chair, initial encounter; Z79.899 Other long term (current) drug therapy
CPT/HCPCS: 72192; 73502; 73564; 73610; 76000; 80048; 84484; 85025; 85027; 86850; 86900; 86901; 93005; 96374; 96376; 97116; 97162; 97167; 97530; 97535; 99285; C1713; C1769